=== PATIENT | female | born 1990 | race Caucasian/White ===

== ENCOUNTER 2020-07-11 23:45 | Inpatient (IN) | payer MEDICAID, SELFPAY ==
[2020-07-11 22:40] VITALS: TEMP 36.7
[2020-07-11 22:58] VITALS: BP 123/79; PULSE 91
[2020-07-11 23:47] VITALS: BMI 33.4
[2020-07-11] MEDS: miSOPROStol 100 mcg tablet 25 MCG VAGINAL (23:59)
[2020-07-12] VITALS (94 sets, daily range): BP systolic 0–149; BP diastolic 0–87; PULSE 61–116; RESP 16; TEMP 36.6–37.1; O2SAT 95–99
[2020-07-12 00:37] LABS: Basophils % 0.2 %; Eosinophils # 0.1 10^3/uL (0.0-0.8); Eosinophils % 1.2 %; Hemoglobin 12.6 g/dL (11.5-15.3); Lymphocytes # 2.1 10^3/uL (0.8-4.8); Mean Corpuscular HGB Conc 33.2 g/dL (30.0-36.0); Mean Corpuscular Hemoglobin 29.9 pg (28.0-34.0); Mean Platelet Volume 11.6 fL (7.4-10.4); Monocytes # 0.5 10^3/uL (0.2-0.9); Monocytes % 6.4 %; Nucleated Red Blood Cells % 0 %; Platelet Count 210 10^3/cmm (130-400); Red Blood Count 4.22 10^6/uL (4.1-5.3); Red Cell Distribution Width 13.1 % (12.1-15.1); White Blood Count 8.2 10^3/uL (4.0-10.0)
--- NOTE | 2020-07-12 02:54 | PC.NURSE ---
Cytote 25g scanned into OCT at 2359, not administered until 0112 due to FHT and contraction pattern.
[2020-07-12] MEDS: lactated ringers 1,000 ML 999 ML IV ×2 (05:43→07:23)
[2020-07-12] MEDS: oxytocin 30 UNIT/500 ML BAG IV (05:47)
--- NOTE | 2020-07-12 06:13 | ANES.PREANE2 ---
Pre-Anesthetic Assessment Pre-Anesthetic Assessment: Height/Weight: Height 1.52 m Weight 77.564 kg Temp Pulse BP 98.1 F 70 122/77 07/11/20 22:40 07/12/20 05:54 07/12/20 05:54 Preop Diagnosis: labor pains Proposed Procedure: epidural Was Beta Rodriguez taken within 24 hours: N/A Social: Social History: No alcohol and No tobacco Exam: Pre-Anes Outpt Exam: alert, oriented x 3, clear to auscultation bilaterally and regular rate & rhythm Airway: Submandibular: WNL Cervical ROM: WNL MP: 2 Dentition: Full Pulmonary: Pulmonary: None reported CV/HEM: CV/HEM: None reported : : None reported Hepatic: Hepatic: None reported GI: GI: GERD (no meds neeeded. patient says it comes randomly but no meds taken) Metabolic: Metabolic: None reported Musc/skel: Musc/skel: None reported Neuropsych: Neuropsych: Anxiety and Depression Comments: PTSD Anesthetic Plan: ASA status: 2 Anesthesia: Eval. for regional block Risk of > 500 ml blood loss (7ml/kg in children): No Meds/Allergies Current Medications: Current Medications Generic Name Dose Route Start Last Admin Trade Name Freq PRN Reason Stop Dose Admin Lactated Ringer's 1,000 mls @ 999 m ls/hr 07/12/20 05:27 07/12/20 05:43 Lactated Ringers IV 999 mls/hr .Q1H1M PRN Administration See label comment s Oxytocin 30 unit in 500 ml s @ 1 mls/hr 07/12/20 05:30 07/12/20 05:47 Pitocin IV 1 milliunit/min .Q24H JOSEPH 1 mls/hr Administration Protocol 1 MILLIUNIT/MIN Misoprostol 25 mcg 07/11/20 23:45 07/11/20 23:59 Misoprostol 100 Mcg Tablet VAGINAL 07/12/20 07:46 25 mcg Q4H JOSEPH Administration PFSH Anesthesia Female Reproductive History: : 2 Data Anesthesia CBC & Chem 7: 07/11/20 00:10 Other Labs: Laboratory Results - last 48 hr 07/11/20 00:10 WBC 8.2 RBC 4.22 Hgb 12.6 Hct 38.0 MCV 90.0 MCH 29.9 MCHC 33.2 RDW 13.1 Plt Count 210 MPV 11.6 H Neut % (Auto) 67.0 Lymph % (Auto) 25.0 Ritchie % (Auto) 6.4 Eos % (Auto) 1.2 Baso % (Auto) 0.2 Neut # (Auto) 5.50 Lymph # (Auto) 2.1 Ritchie # (Auto) 0.5 Eos # (Auto) 0.1 Baso # (Auto) 0.0 Nucleated RBC % (auto) 0 Nucleated RBCs # 0.0 Cardiac Studies: No Data to Display
--- NOTE | 2020-07-12 07:44 | ANES.PROC ---
Anesthesia Procedures Procedure/Date: 07/12/20 Epidural: Time Out Performed: Yes Consents Signed: Procedure Consent and NPO Consent Consent: requested by attending/covering physician, from patient, risks and benefits reviewed and patient agrees to proceed Lumbar Level: L3-L4 Epidural position: laying on side Epidural procedure: sterile prep of area (betadine), 1% lidocaine to numb the area (3), 18 g needle, neg for paresthesia, test dose given, 1.5% xylocaine 1:200k epi (5ml), 0.2% Ropivacaine bolus ml (5ml), placed PCEA, no systemic response, sterile dressing applied, L.U.D. no apparent complications and 0.2% Ropiavacaine @ mls/hr (10ml/hr)
[2020-07-12] MEDS: ondansetron 2 mg/ML SDV 2 mL 4 MG IVP (12:23)
[2020-07-12] MEDS: dextrose 5%-lactated ringers 1,000 ML 125 ML IV (12:24)
--- NOTE | 2020-07-12 14:14 | P.PCNOB_ITS ---
Delivery Note: Date of delivery: July 12, 2020 Pre-Delivery Course: The patient is a 29-year-old 2 with an estimated gestational age of 39 weeks who presented with gestational hypertension. She was induced with Cytotec 25 mcg x 1. An amniotomy was performed. Pitocin augmentation was performed. An epidural was placed. She progressed to complete without difficulty. Her was unremarkable. She was GBS negative. Covid negative. Glucose screen was negative. Her blood type is O-. Remainder of her labs are within normal limits. Delivery: DELIVERY: The patient progressed to complete without difficulty. She delivered a male with a weight of 6 pounds 0 ounces with Apgars of 9, 9. The baby was delivered from the MARTINA position. The baby's mouth and nose were suctioned at the site of the perineum. The baby was then completely delivered and placed on the mother's abdomen. The cord was then clamped and cut. There was no nuchal cord. There was no meconium. The placenta and 3 vessel cord were delivered intact shortly thereafter. The perineum and vaginal vault were carefully examined. No lacerations were noted. Both the mother and the baby were in stable condition. Blood loss was 50 mL Post-Delivery Status: Good A&P Assessment and plan (1) 39 weeks gestation of : Anticipate routine care. If all goes well she should be on to be discharged tomorrow afternoon. She plans to breast-feed. She breast-fed her first child successfully. Status: Acute (2) Gestational hypertension: Status: Acute (3) Spontaneous vaginal delivery: Status: Acute Coding Level of Care Code Acute [place] Seamer for Chg Fwd Diagnoses 39 weeks gestation of Z3A.39 Gestational hypertension O13.9 Spontaneous vaginal delivery O80
[2020-07-12] MEDS: ibuprofen 800 mg tablet PO ×2 (17:54→23:12)
[2020-07-12] MEDS: docusate sodium 100 mg Capsule PO (17:54)
[2020-07-13 02:16] LABS: Hematocrit 31.9 % (37.0-47.0); Hemoglobin 10.5 g/dL (11.5-15.3); Mean Corpuscular HGB Conc 32.9 g/dL (30.0-36.0); Mean Corpuscular Hemoglobin 29.8 pg (28.0-34.0); Mean Corpuscular Volume 90.6 fL (81-99); Mean Platelet Volume 11.4 fL (7.4-10.4); Platelet Count 167 10^3/cmm (130-400); Red Blood Count 3.52 10^6/uL (4.1-5.3); Red Cell Distribution Width 12.9 % (12.1-15.1); White Blood Count 9.4 10^3/uL (4.0-10.0)
[2020-07-13 03:15] VITALS: BP 103/65; PULSE 66; RESP 16; TEMP 36.5; O2SAT 96
[2020-07-13 09:30] VITALS: BP 106/72; PULSE 65; RESP 16; TEMP 36.8
[2020-07-13] MEDS: prenatal vitamin Capsule 1 CAP PO (09:30)
[2020-07-13] MEDS: ibuprofen 800 mg tablet PO (09:30)
[2020-07-13] MEDS: docusate sodium 100 mg Capsule PO (09:30)
--- NOTE | 2020-07-13 11:03 | ANE.PACU2 ---
Inpatient post-anesthesia follow up: Airway intact: Yes Vital signs: Temperature 97.7 F Pulse Rate 66 Respiratory Rate 16 Blood Pressure 103/65 Pulse Oximetry 96 Oxygen Delivery Me thod Room Air Oxygen Flow Rate Fraction of Inspir ed Oxygen Hydration adequate: Yes Nausea and vomiting: No Pain level: 2 Mental status: Baseline Additional Comments: No signs of infection at neuraxial site, no numbness/weakness in lower extremities, up and walking, urinating without martin, no headaches
--- NOTE | 2020-07-13 11:40 | P.DS_ITS ---
Discharge Providers ELASTIC ATTACHER COVERSTITCH Date of Admission: 07/11/20 23:45 Date of Discharge: 07/13/20 Attending Provider at Admission: Moo Sweeney MD Attending Provider at Discharge: Moo Sweeney MD Diagnoses at Discharge Discharge Diagnosis (1) 39 weeks gestation of : Status: Acute (2) Gestational hypertension: Status: Acute (3) Spontaneous vaginal delivery: Status: Acute Reason for Visit Reason for Visit: IOL Hospital Course Hospital Course The patient is a 29-year-old 2 para 1-0-0-1 at 39 weeks estimated gestational age who presented to the hospital for induction due to gestational hypertension. Her induction was unremarkable. She had a Cytotec x1. Pitocin was added for augmentation. The patient progressed to complete and had an unremarkable vaginal delivery. Her course was also unremarkable. She breast-fed well. Her bleeding was within normal limits. Her pain was well controlled. There were no concerns. Information Peripartum Data: Delivery Method: Vaginal Physical Exam Narrative: EXAM NARRATIVE: The patient is alert. She appears comfortable. Her heart has a regular rate and rhythm with no murmurs appreciated. Lungs are clear to auscultation bilaterally. Her fundus is firm and below the umbilicus. Urinary Catheter Management^: Lopez: Cath Placed During This Visit: yes Reason for Continuing Indwelling Catheter: Acute Urinary Retention or Obstruction Urinary Catheter Date of Insertion: 07/12/20 Urinary Catheter Time of Insertion: 08:15 Discharge Data Data Completed and Pending: Labs from last 24 hours 07/13/20 01:45 WBC 9.4 RBC 3.52 L Hgb 10.5 L Hct 31.9 L MCV 90.6 MCH 29.8 MCHC 32.9 RDW 12.9 Plt Count 167 MPV 11.4 H Vitals: Last Vital Signs Temp 97.7 F 07/13/20 03:15 Pulse 66 07/13/20 03:15 Resp 16 07/13/20 03:15 BP 103/65 07/13/20 03:15 Pulse Ox 96 07/13/20 03:15 Discharge Plan Discharge Patient Disposition: Home Condition: Stable Prescriptions: New ibuprofen 800 mg Tablet 800 mg PO TID Qty: 30 RF: 0 Continued #2 RF: 0 Zoloft 50 mg Tablet 50 mg PO DAILY RF: 0 Discharge Orders: Discharge Order (Routine); Ordered 07/13/20 Ordered By: Moo Sweeney Referrals: Moo Sweeney MD [Physician] - 6 Weeks Discharge Diet: Usual diet Discharge Activity: Limit activity as instructed Discharge Attestations ELASTIC ATTACHER COVERSTITCH Time Spent in Discharge Care*: less than 30 min Coding Level of Care Code Acute Sheet Metal Worker Apprentice for Chg Fwd Diagnoses 39 weeks gestation of Z3A.39 Gestational hypertension O13.9 Spontaneous vaginal delivery O80
[2020-07-13] MEDS: HYDROcodone-acetaminophen 5-325 mg Tablet PO (12:06)
[2020-07-13 15:00] VITALS: BP 102/66; PULSE 76; RESP 16; TEMP 36.6
== END 2020-07-13 15:20 | disposition home or self-care (01) | DRG 807 ==
LOC: OPOB 07-12 05:51 → OBGYN 07-12 05:51
PROVIDERS: Admitting Provider Family Medicine; Visit Provider Family Medicine
DX: O13.4 Gestational [pregnancy-induced] hypertension without significant proteinuria, complicating childbirth (principal); Z37.0 Single live birth; Z3A.39 39 weeks gestation of pregnancy; Z20.828 Contact with and (suspected) exposure to other viral communicable diseases
CPT/HCPCS: 12345; 36415; 51702; 59025; 59409; 85025; 85027; 96375; 99211; J2405; J2795

== ENCOUNTER 2020-10-22 10:07 | Emergency (ER) | payer BC, MEDICAID, SELFPAY ==
[2020-10-22 10:08] VITALS: BP 162/74; PULSE 60; RESP 16; O2SAT 100; BMI 28.9
--- NOTE | 2020-10-22 10:16 | ECG_ITS ---
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 Measurements Intervals [place] Rate: 56 P: 13 AK: 143 QRS: 56 QRSD: 77 T: 29 QT: 427 QTc: 415 Interpretive Statements SINUS BRADYCARDIA LOW QRS VOLTAGE IN PRECORDIAL LEADS [QRS DEFLECTION < 1.0 mV IN CHEST LEADS] POSSIBLE ANTERIOR MYOCARDIAL INFARCTION , PROBABLY OLD [30 ms Q WAVE IN V3/V4, OR R < 0.2 mV IN V4] No previous ECG available for comparison Electronically Signed On 10-22-2020 18:52:50 INTELLIGENCE RESEARCH SPECIALIST by Jaxon Willard M.D. [id number]
[2020-10-22 10:19] VITALS: BP 162/74; PULSE 70; RESP 18; O2SAT 98
--- NOTE | 2020-10-22 10:23 | W.ED.ANXIETY ---
HPI - Anxiety General: Chief Complaint: Anxiety Stated Complaint: ANXIETY Time Seen by Provider: 10/22/20 10:11 History of Present Illness: HPI narrative: Patient is a 29-year-old female who comes to the ED with anxiety attack. Patient has a past medical history of depression and PTSD. She currently takes Zoloft. Patient says this morning she was sitting in her living room and she started getting a feeling of generalized unwellness and tingling sensation to her body especially in her face and hands bilaterally. She started hyperventilating. Symptoms lasted for around 30 to 45 minutes and then resolved. She then started developing symptoms again and came here to the ED for further evaluation. Patient says baby was not feeling well at all last night so she was up all night with baby and did not get any sleep. Denies any chest pain or history of panic attacks. Patient just delivered baby at full-term and she had no complications during or during vaginal delivery. She is currently breast-feeding baby. Associated symptoms: Reports malaise; Deny chest pain, chills, fever(s), headache(s), nausea, palpitations or vomiting Review of Systems Const: Reports: malaise; Denies: fever(s), chills or fatigue Eyes: Denies: change in vision or eye discomfort ENMT: Denies: throat pain, odynophagia, nasal discharge or nasal congestion Card: Denies: chest pain, palpitations, edema, swelling of feet/ankles, dyspnea on exertion or orthopnea Resp: Denies: dyspnea, productive cough or non-productive cough GI: Denies: abdominal pain, nausea, vomiting, diarrhea, constipation or hematochezia : Denies: flank pain, dysuria or hematuria Musc: Denies: neck pain, back pain or extremity swelling Skin/Breast: Denies: rash or new lesions Neuro: Reports: other (tingling to face and hands bilaterally); Denies: headache(s), numbness in extremities or weakness in extremities Psych: Reports: anxiety Physical Exam Const: COMMON NORMALS: no acute distress, patient oriented x3, healthy appearing and alert GENERAL APPEARANCE: cooperative and comfortable HENMT: COMMON NORMALS: normocephalic HEAD & SCALP: normocephalic MOUTH: Normal oral and palatal mucosa present THROAT: posterior oropharynx normal and uvula midline Eye: COMMON NORMALS: Equal, round and reactive pupils present, EOMs intact bilaterally and conjunctivae normal CONJUNCTIVA: Yes conjunctivae normal PUPIL: Yes Equal, round and reactive pupils present Neck/C-Spine: COMMON NORMALS: supple GENERAL: Yes normal visual inspection Resp: COMMON NORMALS: normal respiratory effort, No retractions, No use of accessory muscles and clear to auscultation bilaterally AUSCULTATION: clear to auscultation bilaterally Cardio: COMMON NORMALS: regular rate, regular rhythm, S1 normal heart sound present, S2 normal heart sound present, No gallops present (Cardio), No clicks present (Cardio), No murmurs present (Cardio) and Peripheral pulses 2+ throughout RATE: regular rate RHYTHM: regular rhythm HEART SOUNDS: S1 normal heart sound present and S2 normal heart sound present PERIPHERAL PULSES: Peripheral pulses 2+ throughout GI: COMMON NORMALS: Normal to inspection, nondistended, normoactive bowel sounds present, Soft to palpation, non-tender and no masses PALPATION: Yes Soft to palpation : COMMON NORMALS: Yes no CVA tenderness BLADDER/KIDNEY EXAM: Yes no CVA tenderness Back/Pelvis: COMMON NORMALS: no CVA tenderness Extremity: COMMON NORMALS: normal to inspection and no pedal edema Neuro: COMMON NORMALS: patient oriented x3, CN's II-XII intact bilaterally, moves all extremities, no focal motor deficits and no sensory deficits noted SENSORIUM/ORIENTATION: Yes alert SPEECH: speech normal SENSORY EXAM: Yes extremities (intact bilaterally) MOTOR EXAM: 5/5 motor strength present throughout Skin: GENERAL SKIN EXAM: dry skin Course Reevaluation(s): Reevaluation #1: Patient symptoms have resolved. She feels comfortable to discharge home. Vital Signs: Vital signs: Vital Signs Pulse Rate 63 10/22/20 11:48 Respiratory Rate 14 10/22/20 11:48 Blood Pressure 162/74 10/22/20 10:52 Pulse Oximetry 97 10/22/20 11:48 MDM - Anxiety MDM Narrative: Medical decision making narrative: Patient is a 29-year-old female comes to the ED with panic attack/anxiety attack. Patient had some numbness and tingling in her face and arms bilaterally with hyperventilating. Symptoms mostly resolved on arrival to the ED. Upon exam patient seems in no acute distress and in no respiratory distress. She was sitting comfortably on exam bed when entered the room. No other acute exam findings. Neuro exam was normal. CT of head was done and showed no acute findings ruling out possible stroke. EKG showed no acute findings. Patient delivered a baby in July 2020 and is currently breast-feeding so she did not want any meds while she was here in the ED. Patient was diagnosed with acute anxiety and discharged home. She was told to follow-up with her PCP at her next scheduled appointment. Return to ED precautions given. Patient understood and agreed with plan. Imaging Data^: CT Head: Attestation: I personally reviewed and interpreted this imaging study as follows: [facility]'s [facility]: [facility] [address] [place] [address] CT Scan Report Signed Patient: Larisa Peres Unit #: [id number] : 1990 Age/Sex: 29 / F ADM Date: 10/22/20 Loc: ER Room/Bed: Attending Dr: Ordering Provider/Ordering MD: Kurtis Hernandez Date of Service: 10/22/20 Procedure(s): CT head wo con* [id number] Accession Number(s): [id number] Report Number: [id number] WS: [id number] CT HEAD NONCONTRAST HISTORY: numbness to face TECHNIQUE: Contiguous axial imaging performed through the brain in 2.5 mm imaging. Bone and soft tissue windows. Sagittal and coronal reformats reviewed. All CT scans at [facility] use at least one of these dose optimization techniques: automated exposure control; mA and/or kV adjustment per patient size (includes targeted exams where dose is matched to clinical indication); or iterative reconstruction. DLP: 848.26 mGy.cm COMPARISON: None available. No acute intracranial hemorrhage, midline shift or mass effect. No atrophy or prior infarcts or herniation. Ventricles: Normal size with no hydrocephalus. Paranasal sinuses: Moderate mucoperiosteal thickening in the LEFT maxillary sinus. There is also an air-fluid level. Extensive opacification throughout the LEFT ethmoid and sphenoid sinus. Mastoid air cells: Well pneumatized. Calvarium and scalp: Skull is intact with no soft tissue edema or swelling. CT/CT head wo con* [id number] IMPRESSION: 1. Negative head CT. 2. Acute paranasal sinusitis, most significant involving the LEFT maxillary, ethmoid and sphenoid sinus cavities. Dictated By: Evangelina Dee DO Signed By: Evangelina Dee DO Signed Date/Time: 10/22/20 1107 DD/ 1105 EKG Data^: EKG 1: Attestation: I personally reviewed and interpreted this EKG as follows: EKG interpretation date: 10/22/20 Interpretation: Head CT 10/22/20 10:37 IMPRESSION: 1. Negative head CT. 2. Acute paranasal sinusitis, most significant involving the LEFT maxillary, ethmoid and sphenoid sinus cavities. Sinus bradycardia, 56 bpm, no ST segment elevation or depression seen. Other EKG comments: Head CT 10/22/20 10:37 IMPRESSION: 1. Negative head CT. 2. Acute paranasal sinusitis, most significant involving the LEFT maxillary, ethmoid and sphenoid sinus cavities. Discharge Plan Discharge Patient Disposition: Home Clinical Impression: Acute anxiety Condition: Stable Prescriptions: No Action #2 RF: 0 Zoloft 50 mg Tablet 50 mg PO DAILY RF: 0 ibuprofen 800 mg Tablet 800 mg PO TID Qty: 30 RF: 0 Discharge Orders: Discharge ED (Routine); Ordered 10/22/20 Ordered By: Kurtis Hernandez Discharge Diet: Regular Discharge Activity: Increase activity as tolerated Activity Restrictions/Additional Instructions: Follow-up with medical provider as directed in 7 to 10 days. Try to rest today and limit any extra activity. Continue taking all your previously prescribed medications. Return to the ER or your medical provider if condition worsens. Please read and understand discharge instructions. If any questions, please ask. Coding Level of Care Code ED Battery Engineer for Chg Fwd Exam Comprehensive
--- NOTE | 2020-10-22 10:37 | CT_ITS ---
WS: [id number] CT HEAD NONCONTRAST HISTORY: numbness to face TECHNIQUE: Contiguous axial imaging performed through the brain in 2.5 mm imaging. Bone and soft tiss ue windows. Sagittal and coronal reformats reviewed. All CT scans at [facility] use at ast one of these dose optimization techniques: automated exposure control; mA and/or kV adjustment pe r patient size (includes targeted exams where dose is matched to clinical indication); or iterative r econstruction. DLP: 848.26 mGy.cm COMPARISON: None available. No acute intracranial hemorrhage, midline shift or mass effect. No atrophy or prior infarcts or herniation. Ventricles: Normal size with no hydrocephalus. Paranasal sinuses: Moderate mucoperiosteal thickening in the LEFT maxillary sinus. There is also an a ir-fluid level. Extensive opacification throughout the LEFT ethmoid and sphenoid sinus. Mastoid air cells: Well pneumatized. Calvarium and scalp: Skull is intact with no soft tissue edema or swelling. CT/CT head wo con* [id number] IMPRESSION: 1. Negative head CT. 2. Acute paranasal sinusitis, most significant involving the LEFT maxillary, e thmoid and sphenoid sinus cavities.
[2020-10-22 10:52] VITALS: BP 162/74; PULSE 76; RESP 21; O2SAT 97
[2020-10-22 11:48] VITALS: PULSE 63; RESP 14; O2SAT 97
== END 2020-10-22 11:49 | disposition home or self-care (01) ==
PROVIDERS: Emergency Provider Physician Assistant
DX: F41.9 Anxiety disorder, unspecified (principal)
CPT/HCPCS: 70450; 93005; 99283